=== PATIENT | female | born 1960 | race Caucasian/White ===

== ENCOUNTER 2017-12-03 13:51 | Emergency (ER) | payer MEDICARE, OTHER, MEDICAID ==
[2017-12-03] MEDS: KETOROLAC 30 MG INJ IV (16:19)
[2017-12-03] MEDS: DIPHENHYDRAMINE 50 MG INJ IV (16:19)
[2017-12-03] MEDS: SOD CHLORIDE 0.9% 1,000 ML IV (16:19)
[2017-12-03] MEDS: PROCHLORPERAZINE 10 MG INJ IV (16:19)
[2017-12-03 16:43] LABS: ADD UMIC YES; UR ASCORBIC ACID NEGATIVE (NEGATIVE); UR BILIRUBIN (Dip) NEGATIVE (NEGATIVE); UR BLOOD (Dip) NEGATIVE (NEGATIVE); UR CLARITY SLIGHTLY CLOUDY (CLEAR); UR COLOR YELLOW (YELLOW); UR GLUCOSE (Dip) NEGATIVE (NEGATIVE); UR KETONES (Dip) NEGATIVE (NEGATIVE); UR LEUKOCYTE ESTERASE (Dip) TRACE Leu/ul (NEGATIVE); UR NITRITE (Dip) NEGATIVE (NEGATIVE); UR RBC 0 /HPF (0-5); UR SPECIFIC GRAVITY (Dip) 1.011 (1.003-1.030); UR TOTAL PROTEIN (Dip) 1+ mg/dl (NEGATIVE); UR UROBILINOGEN (Dip) NEGATIVE (NEGATIVE); UR WBC 6 /HPF (0-5)
== END 2017-12-03 17:26 | disposition home or self-care (01) ==
LOC: FTE 13:51
DX: R51 Headache (principal); Z87.891 Personal history of nicotine dependence
CPT/HCPCS: 70450; 81001; 96374; 96375; 99285-25